=== PATIENT | male | born 1990 | race Caucasian/White ===

== ENCOUNTER 2023-11-13 22:10 | Emergency (ER) | payer SELFPAY ==
[~2023-11-13] VITALS: Ht 188 cm; Wt 118.0 kg
[2023-11-13 22:15] VITALS: BP 132/70; PULSE 118; RESP 16; TEMP 97.8; O2SAT 95
[2023-11-13] MEDS: ONDANSETRON 4MG ODT PO ONE (23:40)
== END 2023-11-13 23:54 | disposition home or self-care (01) ==
LOC: ER 22:18
DX: F10.129 Alcohol abuse with intoxication, unspecified (principal); R11.2 Nausea with vomiting, unspecified; F19.90 Other psychoactive substance use, unspecified, uncomplicated; Y90.9 Presence of alcohol in blood, level not specified
CPT/HCPCS: 99283; Q0162